=== PATIENT | female | born 1950 | race Caucasian/White ===

== ENCOUNTER → 2018-06-10 08:39 | Outpatient (CLI) | payer MEDICARE, SELFPAY ==
--- NOTE | 2018-06-10 08:45 | BI_ITS ---
MAMMOGRAPHY - BILATERAL SCREENING REASON FOR EXAM: Female, 68 years old. Routine annual screening examination. PERTINENT HISTORY: Non-contributory. TECHNIQUE: Digital bilateral breast destiny (3D mammographic acquisition) in the CC and MLO projections. 2-D mediolateral oblique (MLO) and craniocaudad (CC) views of both breasts were obtained. CAD: Full Field Digital Mammography with Computer Added Detection was performed. COMPARISON: Comparison is made with prior examination dated March 03, 2017 and January 19, 2016. FINDINGS: Breast Composition: There are scattered areas of fibroglandular density. There are no dominant masses or suspicious calcifications. No other significant abnormalities are identified. There has been no significant change since the prior study. BI/SCREENING MAMM (CAD), BILAT IMPRESSION: Stable bilateral screening mammogram. Yearly follow-up mammogram recommended. (A) ASSESSMENT CATEGORY: BIRADS Category 1: Negative. A letter regarding these results will be sent to the patient by the facility within 30 days. Approximately 10% of breast cancers are not detected by mammography. A normal mammogram should not delay biopsy of a clinically suspicious abnormality. [id number] Electronically Signed: Tian Monroy MD at 11:27 EST Tel [phone], Service support ,
--- OUTSIDE RECORDS SUMMARY | 2018-08-14 23:25 | XMS RPT_ITS | Clinical Summary ---
:1950 Author Organization [facility] Address [address] [place] [address] Phone Care Team Providers Name Role Phone Lacey Phillips M Unavailable Unavailable Conditions or Problems No information available. Medications Medication Instructions Start Stop Generic Name [facility] Provider Date Date LEVOTHYROXINE One tablet by / LEVOTHYROXINE [id number] Lacey M SODIUM 100 MCG mouth daily 24 SODIUM Phillips TABS PREMARIN 0.625 use as directed / ESTROGENS, [id number] Lacey M MG/GM CREA 24 CONJUGATED Phillips Medications Administered No information available. Allergies, Adverse Reactions, Alerts No information available. Results No information available. Plan of Care Type Date Detail Appointment 08:20 AM Ofelia Gutierrez MD, [address] [place] [address], Third Floor, [place], [address], Procedures No information available. Vital Signs No information available.
--- OUTSIDE RECORDS SUMMARY | 2018-08-14 23:25 | XMS RPT_ITS ---
:1950 Author Organization [facility] Care Team Providers Name Role Phone Oeflia Gutierrez Attending Unavailable VERITO FONTENOT Referring Unavailable Ofelia Gutierrez Attending Unavailable Ofelia Gutierrez Referring Unavailable ZELALEM FONTENOTROS Primary Care Unavailable ÓSCAR CARMEN MD Admitting Unavailable ÓSCAR CARMEN MD Attending Unavailable ÓSCAR CARMEN MD Primary Care Unavailable ÓSCAR CARMEN MD Consulting Unavailable PROVIDER, UNKNOWN Consulting Unavailable PROVIDER, UNKNOWN Consulting Unavailable PROVIDER, UNKNOWN Consulting Unavailable VERITO FONTENOT MD Admitting Unavailable VERITO FONTENOT MD Attending Unavailable VERITO FONTENOT MD Primary Care Unavailable ÓSCAR CARMEN MD Consulting Unavailable PROVIDER, UNKNOWN Consulting Unavailable PROVIDER, UNKNOWN Consulting Unavailable PROVIDER, UNKNOWN Consulting Unavailable VERITO FONTENOT MD Admitting Unavailable VERITO FONTENOT MD Attending Unavailable VERITO FONTENOT MD Primary Care Unavailable VERITO FONTENOT MD Consulting Unavailable PROVIDER, UNKNOWN Consulting Unavailable PROVIDER, UNKNOWN Consulting Unavailable PROVIDER, UNKNOWN Consulting Unavailable PROBLEMS PROBLEMS DATE TYPE CONDITION / CODE ATTENDING STATUS SOURCE 06/18/2018 Principle Hypothyroidism, LATOUF, BUTROS Active Rufus Pomerene Diagnosis unspecified / MD [facility] E039(ICD-10) Hospital Repository 06/04/2018 Admitting Hypothyroidism, LATOUF, BUTROS Active Rufus Pomerene Diagnosis unspecified / MD [facility] E039(ICD-10) Hospital Repository 02/23/2018 Secondary Pure ÓSCAR CARMEN Active Rufus Pomerene Diagnosis hypercholesterole MD [facility], unspecified Hospital / E7800(ICD-10) Repository PROCEDURES PROCEDURES No Procedure Records FoundRESULTS RESULTS 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 Gasoline Required: No Is patient in pain?: No Allergies No Known Allergies Allergy (Unverified 06/10/18 09:26) Medications estradiol 0.01% (0.1 mg/gram) vaginal cream 1 g VAGINAL QWEEK 06/10/18 [History Confirmed 06/10/18] levothyroxine 88 mcg tablet 88 mcg PO DAILY 06/10/18 [History Confirmed 06/10/18] Is last menstrual period known: No Post menopausal: Yes Patient : No : No PFSH Medical History Vaginal atrophy (Acute) History of DVT (deep vein thrombosis) (Acute) Thyroid disease (Acute) Surgical History H/O: hysterectomy (Acute) S/P lens implant (Acute) Family History Mother Diabetes Father Diabetes Social History Smoking Status: Never smoker alcohol intake: current details: social substance use type: does not use caffeine: Yes what type of physical activity do you participate in: walking seatbelt use: always do you feel safe at home: Yes additional social history: Brooklynn- Both are 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 DateName GA/Weeks Outcome Route Bth WeighInfant GeLabor LgtAnesthesiDel LocatProvider FOB t n h a n HPI ANNUAL: Details: DOMITILA ORDONEZ is a 68 year old who presents for annual exam. discussed vaginal atraophy- discussed vaginal estrogen vs debbi milla procedure. been doing yoga now and enjoying it. been ove ra year since her book was published about her mom. Last PAP: nl in past History of abnormal PAP: no Last mammogram: ordered History of abnormal mammogram: Colon cancer screening: up to date Other preventative health care screenings: dr fontenot Female Reproductive History Questions: Metorrhagia: No, Sexually active: Yes, Dyspareunia: No, PCB: No Menopausal Symptoms: No hot flashes, No night sweats, No weight change, No mood changes, No difficulty concentrating, No sleep problems, No change in libido ROS Const Constitutional: Reports as per HPI; denies poor appetite, fatigue, increased appetite, weight gain, weight loss or night sweats Cardio Card: Denies chest pain Resp Resp: Denies dyspnea or cough GI GI: Reports as per HPI; denies bloating, abdominal pain, constipation, vomiting or nausea : Reports as per HPI and other; denies blood in urine, vaginal odor, vaginal itching, vaginal dryness, vaginal discharge, urinary urgency, urinary incontinence, urinary frequency, pelvic pain, painful urination, difficulty urinating, prolapse symptoms, nipple discharge or hot flashes Skin Skin/Breast: Denies breast pain, breast skin changes, nipple discharge, breast lump or changing lesions Psych Psych: Denies difficulty concentrating or change in sex drive Exam Const General: cooperative, healthy appearing, comfortable, no acute distress, well developed, well groomed HENIA Head: normal to inspection, normocephalic Ears: hearing grossly normal bilaterally, external ears normal Nose: external nose normal Face and sinus: normal facial exam Neck Neck: normal visual inspection, full ROM, no lymphadenopathy Thyroid: thyroid normal Chest Chest palpation AND inspection: normal inspection of the chest Breast inspection: normal inspection of the breasts, normal inspection of the axillae Breast palpation: normal palpation of the breasts, normal palpation of the axillae, no axillary lymphadenopathy Resp Effort AND Inspection: normal respiratory effort GI Inspection: normal to inspection, non-distended Palpation: no guarding, soft, no hepatosplenomegaly General: bladder normal to palpation External Female Exam: normal external appearance, normal appearance of the urethra, no lesions Urethra: normal appearance of the urethra, normal palpation Speculum Exam - Vagina: normal appearance of the vagina, normal vaginal discharge Speculum Exam - Cervix: normal appearance of the cervix, no cervical discharge, no lesions, nontender Bimanual Exam- Vagina AND Uterus: No cervical tenderness, normal bimanual exam, uterine size normal, bladder normal to palpation, uterine mobility normal, uterine consistency normal, uterus non-tender, no cervical motion tenderness Bimanual Exam- Adnexa, other: normal adnexae, no adnexal masses, adnexae non-tender Skin General: no rashes or lesions noted Neuro General: alert, moves all extremities, no focal motor deficits Extrem General: no pedal edema, normal to inspection Psych Appearance: grossly normal Mental Status: mental status grossly normal Affect: normal affect Speech and Movement: speech and movement normal Attitude: cooperative Assessment AND Plan Problems 1. Encounter for gynecological examination without abnormal finding Z01.419 Plan Cervical cancer screening: nl Breast cancer screening: mamm other health maintenance examination reviewed and orders placed if needed. Encouraged maintenance of a healthy weight and active lifestyle and handout given. Annual exam handout including recommendations for good health guidelines, Calcium/vitamin D recommendations, and basic screening information given. Problem list up to date, see problem list details for any additional plan information. Follow up in one year for annual health maintenance exam or sooner if needed. Coding Level of Care Code Off vis,est,prev 65+yrs Diagnoses Encounter for gynecological examination without abnormal finding Z01.419 Gynecological examination findings: abnormal findings ABSENT 06/10/18 1117 <Electronically signed by Ofelia Gutierrez MD> Date Ofelia Gutierrez MD Cosigner Signature: Date (if applicable) CC: SCREENING MAMM (CAD), Observed: 06/10/2018 Status: F Source: BISON BILAT 8:45 AM [facility] REPOSITORY [facility] Imaging Services [address] [place] [address] SCREENING MAMM (CAD), BILAT MR#: [id number] Acct: [id number] Name: DOMITILA ORDONEZ Rep #: [id number] : 1950 F 68 From: Tian Monroy MD PCP: Verito Fontenot Status: REG CLI Study: SCREENING MAMM (CAD), BILAT Date of Exam: 06/10/18 Exam# [id number] Ordering Dr: Ofelia Gutierrez MD MAMMOGRAPHY - BILATERAL SCREENING REASON FOR EXAM: Female, 68 years old. Routine annual screening examination. PERTINENT HISTORY: Non-contributory. TECHNIQUE: Digital bilateral breast destiny (3D mammographic acquisition) in the CC and MLO projections. 2-D mediolateral oblique (MLO) and craniocaudad (CC) views of both breasts were obtained. CAD: Full Field Digital Mammography with Computer Added Detection was performed. COMPARISON: Comparison is made with prior examination dated March 03, 2017 and January 19, 2016. FINDINGS: Breast Composition: There are scattered areas of fibroglandular density. There are no dominant masses or suspicious calcifications. No other significant abnormalities are identified. There has been no significant change since the prior study. BI/SCREENING MAMM (CAD), BILAT IMPRESSION: Stable bilateral screening mammogram. Yearly follow-up mammogram recommended. (A) ASSESSMENT CATEGORY: BIRADS Category 1: Negative. A letter regarding these results will be sent to the patient by the facility within 30 days. Approximately 10% of breast cancers are not detected by mammography. A normal mammogram should not delay biopsy of a clinically suspicious abnormality. [id number] Electronically Signed: Tian Monroy MD at 11:27 EST Tel [phone], Service support , CC: Verito Fontenot; Ofelia Gutierrez MD Film Booker: Signed TSH Collected: 06/04/2018 Status: F Source: RUFUS OVERTON 10:[address] [facility] REPOSITORY TYPE CODE TESTS RESULT OUT OF RANGE REFERENCE UNITS LAB TSH(LOINC) 0.34 - 5.60 uIU/ml TSH 1.67 Performed By: #### [id number] #### [facility],[address] [place], [place] [address] T4-FREE (FREE Collected: 06/04/2018 Status: F [facility]:46 [facility] REPOSITORY TYPE CODE TESTS RESULT OUT OF RANGE REFERENCE UNITS LAB T4 0.61 - 1.12 ng/dl FREE(LOINC) High T4 FREE 1.26 Result Comment: *SPECIMENS FROM PATIENTS WHO ARE UNDERGOING BIOTIN THERAPY AND/OR INGESTING BIOTIN SUPPLEMENTS MAY HAVE FALSE HIGH RESULTS. Performed By: #### [id number] #### [facility],[address] [place], [place] [address] ALLERGIES ALLERGIES DATE TYPE / CODE NAME / CODE REACTION SEVERITY SOURCE 06/10/2018 Drug No Known Unknown [place] Allergy/[id number](S Allergies/F0019 Replaced By [facility] NOMED CT) 05518(RXNORM) Hospital Repository Miscellaneous No Known Moderate Rufusyariel [place] Allergy/932103846(S Allergies ([facility]OM[facility]) Modifier) Hospital (Qualifier Repository Value) ENCOUNTERS ENCOUNTERS ADMIT/DISCHARGE ACCOUNT ADMITTING ENCOUNTER LOCATION SOURCE NUMBER CLASS 06/18/2018 [id number] TAHMINANilam, Ambulatory Rufusyariel [place] SELLERS [facility] Repository 06/10/2018/ [id number] Ambulatory BMSBuilding:B [place] 9 8 [facility] Repository 06/10/2018 [id number] Ambulatory [place] 9 [facility] ing:OPBI Repository 06/04/2018/ [id number] MIRZA, Ambulatory Rufus Burtcesar 9 VERITO [facility] Repository 02/23/2018/ [id number] ÓSCAR CARMEN Ambulatory Rufus [place] 8 [facility] Repository PAYERS PAYERS ENCOUNTER GUARANTOR PAYER SUBSCRIBER SOURCE 06/18/2018 DOMITILA LONGDOB: Primary DOMITILA LONGDOB: Rufus Dallascesar [id number] Insurance:DARLINE [id number] [facility] [place] [facility] [place] ADVANTAGPolic Number: [facility] , [place] [address]Pyx: [id number] [id number] Date:8095-93-29Otdj () Name: 06/10/2018 DOMITILA [id number] Primary DOMITILA LONGDOB: [place] [facility] Insurance:HUMANA [id number] [place] [facility] [address]Qza: (740) Number: Repository [phone] () [id number] Date:[id number] [address] [address]GD: 06/10/2018 Secondary NOT GIVENUNK [place] Insurance:SELF PAY [facility] Number: Effective Repository Date:2018-06-10 06/10/2018 DOMITILA [id number] Primary DOMITILA LONGDOB: [place] [facility] Insurance:HUMANA [id number] [place] [facility] [address]Etx: [phone]) Number: Repository [phone] () [id number] Date:2831-19-73XL [address] [address]VS: 06/10/2018 Secondary NOT GIVENUNK [place] Insurance:SELF PAY [facility] Number: Effective Repository Date:2018-01-20 06/04/2018 DOMITILA LONGDOB: Primary DOMITILA LONGDOB: Rufus Dallascesar [id number] Insurance:DARLINE LOW [id number] [facility] [place] MEDICARE 80 Hospital [place] OUTPATIENTPolicy [facility] [place] [address]Fwz: Number: [place] [id number] () Date:Plan Name: 02/23/2018 DOMITILA MOBLEYB: Primary DOMITILA ITZB: Rufus Overton [id number] Insurance:DARLINE LOW [id number] [facility] [place] MEDICARE 80 Hospital [place] OUTPATIENTPolicy [place] Rep[place] [address]Cei: Number: [place], [place] [id number] () Date:Plan Name:B2
--- OUTSIDE RECORDS SUMMARY | 2018-08-14 23:25 | XMS RPT_ITS | Clinical Summary ---
:1950 Author Organization [facility], [facility] Address [address] [place] [address] Phone Care Team Providers Name Role Phone Matt AMOS, Ofelia Chapa Unavailable Conditions or Problems Problem Problem Onset Status Entry Provider Comment Standard Annotate Name Code Date Date Description Screening [id number] Active Ofelia Chapa Screening mammogram (SN Matt mammography for breast CT) cancer Hvac Lead annual 66465386 Active Ofelia Chapa Gynecologic exam (SNOMED Matt examination CT) Medications Medication Instructions Start Stop Generic Name NDC Provider Date Date ESTRACE 0.1 apply fingertip / ESTRADIOL [id number] Ofelia E MG/GM CREA amount to 24 Marcanthony vagina nightly MD x 2 weeks, then every other night x 2 weeks, then 1-3x weekly for maintenance PREMARIN 0.625 use as directed / ESTROGENS, 84724392366 Lacey M MG/GM CREA 24 CONJUGATED Phillips LEVOTHYROXINE One tablet by / LEVOTHYROXINE [id number] Lacey M SODIUM 100 MCG mouth daily 24 SODIUM Phillips TABS Medications Administered No information available. Allergies, Adverse Reactions, Alerts Allergy Name Reaction Description Start Date Severity Status Provider MORPHINE SULFATE Critical Active Lacey M Phillips (CONCENTRATE) Results Date Name Value Unit Range Flag Description Office Visit: est annual HEMOCCULT not done Hemoglobin.gastrointestinal [Presence] in Stool FALLRSKASSES No Fall risk assessment ORALTOBACUSE Never Tobacco smoking status NHIS SMOK STATUS Never smoker Tobacco use [facility] MEDS REVIEW Done Documentation of current medications (procedure) PAP SMEAR Normal General categories [Interpretation] of Cervical or vaginal smear or scraping by Cyto stain MAMMOGRAM Normal Bilateral Breast Mammogram screening Plan of Care Type Date Detail Appointment 08:20 AM Ofelia Gutierrez MD, [address], [address] Floor, [place], [address], Pending order Mammogram, Screening, both breasts Procedures No information available. Vital Signs Date Name Value Unit Description BMI (Body Mass Index) 24.91 kg/m2 Body Mass Index [Ratio] Body Temperature 97.3 [degF] temperature E&M Body Temperature 36.28 Paula temperature in centigrade E&M BP Diastolic 73 mm[Hg] blood pressure, diastolic - 8462-4 BP Systolic 114 mm[Hg] blood pressure, systolic - 8480-6 Heart Rate 67 /min pulse rate E&M - 8867-4 Height 65.5 [in_us] height E&M - 8302-2 Height 166.37 cm height in centimeters E&M Respiratory Rate 16 /min respiratory rate E&M - 9279-1 Weight Measured 152.0 [lb_av] weight E&M - 3141-9 Weight Measured 68.95 kg weight in kilograms E&M
--- OUTSIDE RECORDS SUMMARY | 2018-08-14 23:25 | XMS RPT_ITS | Clinical Summary ---
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 82028419 Active Ofelia Chapa Gynecologic exam (SNOMED Matt examination CT) Medications Medication Instructions Start Stop Generic Name NDC Provider Date Date ESTRACE 0.1 apply fingertip / ESTRADIOL [id number] Ofelia E MG/GM CREA amount to 24 Marcanthony vagina nightly MD x 2 weeks, then every other night x 2 weeks, then 1-3x weekly for maintenance PREMARIN 0.625 use as directed / ESTROGENS, 73302190572 Lacey M MG/GM CREA 24 CONJUGATED Phillips LEVOTHYROXINE One tablet by / LEVOTHYROXINE [id number] Lacey M SODIUM 100 MCG mouth daily [...] NHIS SMOK STATUS Never smoker Tobacco use [facility] MEDS REVIEW Done Documentation of current medications (procedure) PAP SMEAR Normal General categories [Interpretation] of Cervical or vaginal smear or scraping by Cyto stain MAMMOGRAM Normal Bilateral Breast Mammogram screening Plan of Care Type Date Detail Pending order Mammogram, Screening, both breasts Procedures [...]
== END ==
PROVIDERS: Family Provider Internal Medicine; PCP Internal Medicine; Referring Provider Obstetrics & Gynecology; Visit Provider Obstetrics & Gynecology
DX: Z12.31 Encounter for screening mammogram for malignant neoplasm of breast (principal)
CPT/HCPCS: 77063; 77067

== ENCOUNTER → 2019-06-21 10:34 | Outpatient (CLI) | payer MEDICARE, SELFPAY ==
[2018-06-10 09:26] VITALS: BMI 26.0
--- NOTE | 2019-06-21 10:35 | BI_ITS ---
MAMMOGRAPHY - BILATERAL SCREENING REASON FOR EXAM: Female, 69 years old. Routine annual screening examination. PERTINENT HISTORY: Non-contributory. TECHNIQUE: Digital bilateral breast thomas (3D mammographic acquisition) in the CC and MLO projections. 2-D mediolateral oblique (MLO) and craniocaudad (CC) views of both breasts were obtained. CAD: Full Field Digital Mammography with Computer Added Detection was performed. COMPARISON: Comparison is made with prior study dated June 10, 2018 and March 03, 2017. FINDINGS: Breast Composition: There are scattered areas of fibroglandular density. There are no dominant masses or suspicious calcifications. No other significant abnormalities are identified. There has been no significant change since the prior study. BI/SCREEN MAMM (CAD) W/THOMAS BILAT IMPRESSION: Stable bilateral screening mammogram. Yearly follow-up mammogram recommended. (A) ASSESSMENT CATEGORY: BIRADS Category 1: Negative. A letter regarding these results will be sent to the patient by the facility within 30 days. Approximately 10% of breast cancers are not detected by mammography. A normal mammogram should not delay biopsy of a clinically suspicious abnormality. [id number] Electronically Signed: Tian Monroy, at 12:13 EST , Service support ,
== END ==
PROVIDERS: Family Provider Internal Medicine; PCP Internal Medicine; Referring Provider Obstetrics & Gynecology; Visit Provider Obstetrics & Gynecology
DX: Z12.31 Encounter for screening mammogram for malignant neoplasm of breast (principal)
CPT/HCPCS: 77063; 77067

== ENCOUNTER → 2020-06-22 08:32 | Outpatient (CLI) | payer MEDICARE, SELFPAY ==
[2019-06-21 11:08] VITALS: BMI 25.7
--- NOTE | 2020-06-22 08:34 | BI_ITS ---
MAMMOGRAPHY - BILATERAL SCREENING REASON FOR EXAM: Female, 70 years old. Routine annual screening examination. PERTINENT HISTORY: Non-contributory. TECHNIQUE: Digital bilateral breast thomas (3D mammographic acquisition) in the CC and MLO projections. 2-D mediolateral oblique (MLO) and craniocaudad (CC) views of both breasts were obtained. CAD: Full Field Digital Mammography with Computer Added Detection was performed. COMPARISON: Comparison is made with prior study dated 12/20/2019 and 06/10/2018. FINDINGS: Breast Composition: The breasts are heterogeneously dense, which may obscure small masses. There are no dominant masses or suspicious calcifications. No other significant abnormalities are identified. There has been no significant change since the prior study. BI/SCRN MAMM (CAD)W/THOMAS BILAT IMPRESSION: Stable bilateral screening mammogram. Yearly follow-up mammogram recommended. (A) ASSESSMENT CATEGORY: BIRADS Category 1: Negative. A letter regarding these results will be sent to the patient by the facility within 30 days. Approximately 10% of breast cancers are not detected by mammography. A normal mammogram should not delay biopsy of a clinically suspicious abnormality. [id number] Electronically Signed: Tian Monroy MD at 9:19 EST , Service support ,
== END ==
PROVIDERS: PCP Internal Medicine; Referring Provider Obstetrics & Gynecology; Visit Provider Obstetrics & Gynecology
DX: Z12.31 Encounter for screening mammogram for malignant neoplasm of breast (principal); R30.9 Painful micturition, unspecified
CPT/HCPCS: 77063; 77067; 87077; 87086; 87088; 87186

== ENCOUNTER 2021-06-27 14:53 | Outpatient (CLI) | payer MEDICARE, SELFPAY ==
--- NOTE | 2021-06-27 14:56 | BI_ITS ---
MAMMOGRAPHY - BILATERAL SCREENING REASON FOR EXAM: Female, 71 years old. Routine annual screening examination. PERTINENT HISTORY: Non-contributory. TECHNIQUE: Digital bilateral breast thomas (3D mammographic acquisition) in the CC and MLO projections. 2-D mediolateral oblique (MLO) and craniocaudad (CC) views of both breasts were obtained. CAD: Full Field Digital Mammography with Computer Added Detection was performed. COMPARISON: Comparison is made with prior study dated 12/20/2020 and 06/21/2019. FINDINGS: Breast Composition: The breasts are heterogeneously dense, which may obscure small masses. There are no dominant masses or suspicious calcifications. Stable small benign appearing bilateral axillary lymph nodes. No other significant abnormalities are identified. There has been no significant change since the prior study. BI/SCRN MAMM (CAD)W/THOMAS BILAT IMPRESSION: Stable bilateral screening mammogram. Yearly follow-up mammogram recommended. (A) ASSESSMENT CATEGORY: BIRADS Category 2: Benign. A letter regarding these results will be sent to the patient by the facility within 30 days. Approximately 10% of breast cancers are not detected by mammography. A normal mammogram should not delay biopsy of a clinically suspicious abnormality. [id number] Electronically Signed: Tian Monroy MD at 15:39 EST ,
== END 2021-06-27 23:59 | disposition short-term general hospital (02) ==
LOC: OPBI 14:54
PROVIDERS: PCP Internal Medicine; Visit Provider Obstetrics & Gynecology
DX: Z12.31 Encounter for screening mammogram for malignant neoplasm of breast (principal)
CPT/HCPCS: 77063; 77067

== ENCOUNTER → 2022-09-06 | Outpatient (CLI) | payer MEDICARE, SELFPAY ==
--- NOTE | 2022-09-06 13:10 | BI_ITS ---
MAMMOGRAPHY - BILATERAL SCREENING 3-D TOMOSYNTHESIS REASON FOR EXAM: Female, 72 years old. Screening mammogram PERTINENT HISTORY: No significant family history. TECHNIQUE: 2-D mammograms and 3-D Tomosynthesis of the breast (s) were performed. CAD was performed. COMPARISON: 06/22/2020 FINDINGS: The breast composition is heterogeneously dense that can obscure small breast masses. Scattered benign calcifications are seen. No dense spiculated masses or suspicious microcalcifications are identified. No architectural distortion is identified. There is no skin thickening or retraction. There has been no significant change since the prior study. BI/SCRN MAMM (CAD)W/THOMAS BILAT IMPRESSION: No mammographic signs of malignancy. Routine yearly mammograms recommended. ASSESSMENT CATEGORY: BIRADS Category 2: Benign. A letter regarding these results will be sent to the patient by the facility within 30 days. FOLLOW UP RECOMMENDATION: Yearly follow up mammogram recommended. (A) Approximately 10% of breast cancers are not detected by mammography. A normal mammogram should not delay biopsy of a clinically suspicious abnormality. Electronically Signed: Michael Lassiter MD at 14:11 EDT ,
== END | disposition home or self-care (01) ==
LOC: OPBI 13:10
PROVIDERS: PCP Internal Medicine; Referring Provider Obstetrics & Gynecology; Visit Provider Obstetrics & Gynecology
DX: Z12.31 Encounter for screening mammogram for malignant neoplasm of breast (principal)
CPT/HCPCS: 77063; 77067

== ENCOUNTER → 2023-09-12 | Outpatient (CLI) | payer MEDICARE, SELFPAY ==
--- NOTE | 2023-09-12 09:53 | BI_ITS ---
MAMMOGRAPHY - BILATERAL DIAGNOSTIC REASON FOR EXAM: Female, 73 years old. Intermittent left nipple inversion. PERTINENT HISTORY: Non-contributory. TECHNIQUE: Digital bilateral breast destiny (3D mammographic acquisition) in the CC and MLO projections. 2-D mediolateral oblique (MLO) and craniocaudad (CC) views of both breasts were obtained. CAD: Full Field Digital Mammography with Computer Added Detection was performed. COMPARISON: Comparison is made with prior study dated September 06, 2022 and June 27, 2021. FINDINGS: Breast Composition: The breasts are heterogeneously dense, which may obscure small masses. There are no dominant masses or suspicious calcifications. No other significant abnormalities are identified. There has been no significant change since the prior study. BI/DIAG MAMM W/CAD, BILAT IMPRESSION: Stable bilateral diagnostic mammogram. One year follow-up recommended. (A) ASSESSMENT CATEGORY: BIRADS Category 1: Negative. A letter regarding these results will be sent to the patient by the facility within 30 days. Approximately 10% of breast cancers are not detected by mammography. A normal mammogram should not delay biopsy of a clinically suspicious abnormality. Electronically Signed: Tian Monroy MD at 10:43 EDT ,
--- NOTE | 2023-09-12 09:53 | US_ITS ---
STUDY: ULTRASOUND BREAST - LEFT REASON FOR EXAM: Female, 73 years old. Occasional inversion of the left nipple complex. TECHNIQUE: Axial and longitudinal images of the LEFT breast were performed with a high resolution ultrasound transducer. # OF IMAGES: 32 COMPARISON: Comparison is made with prior mammogram done earlier today. FINDINGS: LEFT Breast: The retroareolar region of the breast was examined with ultrasound. No sonographic abnormality is seen. US/Breast Limited Unilateral IMPRESSION: No sonographic abnormality is seen. ASSESSMENT CATEGORY: BIRADS Category 1: Negative. A letter regarding these results will be sent to the patient by the facility within 30 days. Electronically Signed: Tian Monroy MD at 14:35 EDT ,
== END | disposition home or self-care (01) ==
LOC: OPBI 09:51
PROVIDERS: PCP Internal Medicine; Referring Provider Obstetrics & Gynecology; Visit Provider Obstetrics & Gynecology
DX: N64.59 Other signs and symptoms in breast (principal)
CPT/HCPCS: 76642; 77062; 77066; G0279

== ENCOUNTER → 2024-09-22 | Outpatient (CLI) | payer MEDICARE, SELFPAY ==
--- NOTE | 2024-09-22 07:35 | BI_ITS ---
EXAM: SCRN MAMM (CAD)W/THOMAS BILAT 09/22/2024 CLINICAL HISTORY: F, Age 74 y/o , BREAST CANCER SCREENING TECHNIQUE: Bilateral screening digital breast tomosynthesis with 2D and 3D images. Computer aided detection. COMPARISON: Prior exam(s) dated 09/12/2023, 09/06/2022, 06/27/2021. FINDINGS: TISSUE DENSITY: The breast tissue is composed of scattered area of fibroglandular density. Bilateral Breast Mammographic Findings: No significant masses, calcifications or other abnormalities are identified. BI/SCRN MAMM (CAD)W/THOMAS BILAT IMPRESSION: Right Breast: BIRADS 1 NEGATIVE. Left Breast: BIRADS 1 NEGATIVE. OVERALL FINAL ASSESSMENT: BIRADS 1 NEGATIVE. RECOMMENDATION: Routine annual follow-up in 1 Year A letter with findings and recommendations will be mailed to the patient. Reading Location: [id number]
== END | disposition home or self-care (01) ==
LOC: OPBI 07:34
PROVIDERS: PCP Internal Medicine; Referring Provider Obstetrics & Gynecology; Visit Provider Obstetrics & Gynecology
DX: Z12.31 Encounter for screening mammogram for malignant neoplasm of breast (principal)
CPT/HCPCS: 77063; 77067